=== PATIENT | female | born 1950 | race Caucasian/White ===

== ENCOUNTER → 2016-05-31 | Outpatient (REF) | payer OTHER | LOC: M SFHCWAGY 12:51 | PROVIDERS: ATTEND Nurse Practitioner Women's Health | DX: Z12.4 Encounter for screening for malignant neoplasm of cervix (principal) ==

== ENCOUNTER → 2016-11-08 | Outpatient (REF) | payer OTHER | LOC: M LAB REF 17:31 | PROVIDERS: ATTEND Surgery | DX: C44.622 Squamous cell carcinoma of skin of right upper limb, including shoulder (principal) ==

== ENCOUNTER → 2017-06-26 | Outpatient (CLI) | payer MEDICARE, OTHER | LOC: M WHC 10:01 | DX: Z12.31 Encounter for screening mammogram for malignant neoplasm of breast (principal); Z01.419 Encounter for gynecological examination (general) (routine) without abnormal findings (principal); Z78.0 Asymptomatic menopausal state; Z80.3 Family history of malignant neoplasm of breast; Z92.23 Personal history of estrogen therapy; Z92.89 Personal history of other medical treatment | CPT/HCPCS: 77067 ==

== ENCOUNTER → 2017-12-06 | Outpatient (CLI) | payer MEDICARE, OTHER | LOC: M RAD 11:30 | DX: I65.23 Occlusion and stenosis of bilateral carotid arteries (principal); E04.1 Nontoxic single thyroid nodule | CPT/HCPCS: 93880 ==

== ENCOUNTER → 2018-06-28 | Outpatient (CLI) | payer MEDICARE, OTHER ==
--- NOTE | 2018-06-28 11:54 | REPMRS ---
Patient History The patient states she had a clinical breast exam in 06/2018. Patient is postmenopausal, has history of high-risk lesion on a previous biopsy at age 65, has history of squamous and basal cell skin cancer at age 60, and is nulliparous. Family history of breast cancer at age 67 in mother, breast cancer at age 60 in sister, breast cancer at age 60 in sister, breast cancer under age 50 in maternal aunt. Took estrogen for 2 years. 3D TOMOSYNTHESIS WAS PERFORMED. Digital Woman Screen Mammo: June 28, 2018 - Exam #: [id number] Bilateral CC and MLO view(s) were taken. Technologist: Charline Rudolph, Technologist Prior study comparison: June 26, 2017, digital woman screen mammo performed at [facility]. 2017, bilateral digital woman screen mammo, performed at [facility]. FINDINGS: There are scattered fibroglandular densities. There has been no change in the appearance of the mammogram from the prior studies. There is a mild amount of residual fibroglandular tissue which is fairly symmetric. There is no interval development of dominant mass, architectural distortion, or clustered microcalcification suggestive of malignancy. Assessment: BI-RADS/ACR category 1 mammogram. Negative Mammogram. Recommendation Routine screening mammogram in 1 year (for women over age 40). This mammogram was interpreted with the aid of an FDA-approved computer-aided dectection system. THE LIFETIME RISK OF BREAST CANCER IS 21.2%, THEREFORE SUPPLEMENTAL SCREENING MRI OF THE BREASTS IS RECOMMENDED. Electronically Signed By: Jovi Cardona MD 06/28/18 [id number]
== END ==
LOC: M WHC 10:09
PROVIDERS: ATTEND Nurse Practitioner Women's Health
DX: Z01.419 Encounter for gynecological examination (general) (routine) without abnormal findings (principal); Z12.31 Encounter for screening mammogram for malignant neoplasm of breast; Z78.0 Asymptomatic menopausal state; Z85.828 Personal history of other malignant neoplasm of skin; Z80.3 Family history of malignant neoplasm of breast; Z92.23 Personal history of estrogen therapy
CPT/HCPCS: 77063; 77067; G0101

== ENCOUNTER → 2019-07-22 | Outpatient (CLI) | payer MEDICARE, OTHER ==
--- NOTE | 2019-07-22 13:44 | REPMRS ---
Patient History The patient states she had a clinical breast exam in June 2019. Family history of breast cancer at age 67 in mother, breast cancer at age 60 in sister, breast cancer at age 60 in sister, breast cancer under age 50 in maternal aunt. Took estrogen for 2 years. Digital Woman Screen Mammo: July 22, 2019 - Exam #: [id number] Bilateral CC and MLO view(s) were taken. Technologist: Jayna Morton, Technologist Prior study comparison: June 28, 2018, bilateral digital woman screen mammo performed at [facility]. June 26, 2017, digital woman screen mammo performed at [facility]. May 29, 2015, digital woman screen mammo performed at [facility]. FINDINGS: The breast tissue is almost entirely fat. There has been no change in the appearance of the mammogram from the prior studies. There is no interval development of dominant mass, architectural distortion, or grouped microcalcification typical of malignancy. 3-D tomosynthesis shows no additional findings. Assessment: BI-RADS/ACR category 1 mammogram. Negative Mammogram. Recommendation Breast MRI of both breasts in 6 months. Routine screening mammogram of both breasts in 1 year (for women over age 40). This patient's Lifetime Breast Cancer RIsk is estimated at 20.2 %. Annual screening Breast MRI scanniing is recommended for patient's whose lifetime risk assessment is over 20%. This mammogram was interpreted with the aid of an FDA-approved computer-aided dectection system. Electronically Signed By: Trevin Vivas MD 07/22/19 [id number]
== END ==
LOC: M WHC 11:45
PROVIDERS: ATTEND Nurse Practitioner Women's Health
DX: Z12.31 Encounter for screening mammogram for malignant neoplasm of breast (principal); Z80.3 Family history of malignant neoplasm of breast; Z92.23 Personal history of estrogen therapy; Z91.89 Other specified personal risk factors, not elsewhere classified
CPT/HCPCS: 77063; 77067; G0101

== ENCOUNTER → 2021-11-19 | Outpatient (CLI) | payer MEDICARE, OTHER | LOC: M WHC 13:25 | PROVIDERS: ATTEND Family Medicine | DX: Z12.31 Encounter for screening mammogram for malignant neoplasm of breast (principal) ==

== ENCOUNTER → 2022-11-24 | Outpatient (CLI) | payer MEDICARE, OTHER | LOC: M WHC 14:21 | PROVIDERS: ATTEND Nurse Practitioner Family | DX: Z12.31 Encounter for screening mammogram for malignant neoplasm of breast (principal) ==